=== PATIENT | male | born 1995 | race Caucasian/White ===

== ENCOUNTER 2018-11-14 23:53 | Emergency (ER) | payer OTHER ==
[~2018-11-14] VITALS: Ht 182.9 cm; Wt 82.6 kg
--- NOTE | 2018-11-15 00:17 | PHYS DOC ---
Adult General Chief Complaint Chief Complaint: SHORTNESS OF BREATH HPI HPI Patient is a 23 year old male presents to the ED complaining of cough 3 days ago. Patient states he started having mild shortness of breath today when he was at work. States he went home and took an Epson salt bath but then started to cough more. Associated symptoms include congestion and sore throat. States he has not taken any medications at home [id number]. Patient states he has used an inhaler before as a kid. Reports that he recently quit smoking 2 weeks ago. Denies chest pain, weakness, dizziness, lower leg swelling, recent travel, history of blood clots, abdominal pain, nausea/vomiting or fever. (GIAN TAYLOR) Review of Systems Review of Systems Constitutional: Denies fever or chills [] Eyes: Denies change in visual acuity, redness, or eye pain [] HENT: Complains of congestion and sore throat.[] Respiratory: Complains of cough and shortness of breath. Cardiovascular: No additional information not addressed in HPI [] GI: Denies abdominal pain, nausea, vomiting, bloody stools or diarrhea [] : Denies dysuria or hematuria [] Musculoskeletal: Denies back pain or joint pain [] Integument: Denies rash or skin lesions [] Neurologic: Denies headache, focal weakness or sensory changes [] All other systems were reviewed and found to be within normal limits, except as documented in this note. (GIAN TAYLOR) Current Medications Current Medications Current Medications Medications (Trade) Dose Ordered Sig/[place] Start Time Stop Time Status Last Admin Dose Admin Albuterol/ Ipratropium (Duoneb) 3 ml 1X ONCE 11/15/18 00:30 11/15/18 00:34 DC 11/15/18 00:49 3 ML Methylprednisolone Sodium Succinate (SOLU-Medrol 125MG VIAL) 125 mg 1X ONCE 11/15/18 00:30 11/15/18 00:34 DC 11/15/18 00:56 125 MG (BRIANA DAMON MD) Allergies Allergies Allergies Coded Allergies Type Severity Reaction Last Updated Verified No Known Drug Allergies 11/15/18 No (BRIANA DAMON MD) Physical Exam Physical Exam Constitutional: Well developed, well nourished, no acute distress, non-toxic appearance. [] HENT: Normocephalic, atraumatic, bilateral external ears normal, oropharynx moist, no oral exudates, nose normal. [] Eyes: PERRLA, EOMI, conjunctiva normal, no discharge. [] Neck: Normal range of motion, no tenderness, supple, no stridor. [] Cardiovascular:Heart rate regular rhythm, no murmur [] Lungs & Thorax: mild wheezing bilaterally. Dry cough. [] Abdomen: Bowel sounds normal, soft, no tenderness, no masses, no pulsatile masses. [] Skin: Warm, dry, no erythema, no rash. [] Back: No tenderness, no CVA tenderness. [] Extremities: No tenderness, no cyanosis, no clubbing, ROM intact, no edema. [] Neurologic: Alert and oriented X 3, normal motor function, normal sensory function, no focal deficits noted. [] Psychologic: Affect normal, judgement normal, mood normal. [] (GIAN TAYLRO) Current Patient Data Vital Signs Vital Signs Date Time Temp Pulse Resp B/P (MAP) Pulse Ox O2 Delivery O2 Flow Rate FiO2 11/15/18 00:59 98 16 136/76 (96) 98 Room Air 11/15/18 00:05 98.2 98.2 (BRIANA DAMON MD) EKG EKG [] (GIAN TAYLOR) Radiology/Procedures Radiology/Procedures [] (GIAN TAYLOR) Course & Med Decision Making Course & Med Decision Making Pertinent Labs and Imaging studies reviewed. (See chart for details) []Reviewed imaging findings with attending physician. No acute cardiopulmonary issues. Patient mildly wheezing on exam. States he is feeling much better after breathing treatment. Patient is not tachypneic or tachycardic. O2 sat after treatment is 98%. We'll treat outpatient with short course of prednisone, inhaler and cough suppressant. Discussed symptomatic treatment, hydration and [id number] medications. Discussed follow-up with PCP this week. Provided contact information/education. Discussed reasons to return to the ED. Patient understands and agrees with plan. Patient does not meet the PERC criteria for PE. Patient is less than 50 years old, heart rate less than 100, O2 saturation greater than 95%, no leg swelling, hemoptysis, recent surgery, prior DVT/PE or hormone use (GIAN TAYLOR) Course & Med Decision Making Staff Physician Addendum: I was working in the ER during the course of this patient's visit. I was available for consultation as needed, but I was not directly involved in the care of this patient. (BRIANA DAMON MD) Dragon Disclaimer Dragon Disclaimer This electronic medical record was generated, in whole or in part, using a voice recognition dictation system. (GIAN TAYLOR) Departure Departure Impression: Primary Impression: Acute bronchitis Disposition: HOME, SELF-CARE Condition: IMPROVED Referrals: BOZENA MOULTON MD Patient Instructions: Acute Bronchitis Scripts Albuterol Sulfate (PROAIR HFA INHALER) 8.5 Gm Hfa.aer.ad 1 PUFF INH PRN Q6HRS PRN for SHORTNESS OF BREATH, #1 INHALER 0 Refills Prov: GIAN TAYLOR 11/15/18 Benzonatate (TESSALON PERLE) 100 Mg Capsule 1 CAP PO TID for 5 Days, #15 CAP Prov: GIAN TAYLOR 11/15/18 Prednisone (PREDNISONE) 50 Mg Tablet 1 TAB PO DAILY for 5 Days, #5 TAB Prov: GIAN TAYLOR 11/15/18 GIAN TAYLOR Nov 15, 2018 00:17 BRIANA DAMON MD Nov 18, 2018 20:18
[2018-11-15] MEDS ORDERED: IPRATRPIUM/ALBUTEROL 0.5/2.5MG 3 ML NEBU. NEB ONE (00:30)
[2018-11-15] MEDS ORDERED: methylPREDNISolone SOD SUCC PF 125 MG/2 ML VIAL. IM ONE (00:30)
[2018-11-15 00:59] VITALS: BP 136/76
[2018-11-15] MEDS ORDERED: PRED50TA PO (01:01)
[2018-11-15] MEDS ORDERED: BENZ100C PO (01:01)
[2018-11-15] MEDS ORDERED: ALBU2.5V8 INH (01:01)
--- NOTE | 2018-11-15 07:47 | RAD ---
Single view of the chest. 11/15/2018 12:04 AM Indication: Shortness of breath today Comparison: None Findings: There is no focal consolidation. There is no pleural effusion or pneumothorax. The cardiomediastinal silhouette and pulmonary vasculature are within normal limits. No acute osseous abnormalities are seen. Impression: No evidence of acute cardiopulmonary process. Electronically signed by: Gabriel Keller MD (11/15/2018 7:44 AM) [id number]
== END 2018-11-15 01:22 | disposition home or self-care (01) ==
LOC: ER 11-15 00:24
DX: J20.9 Acute bronchitis, unspecified (principal)
CPT/HCPCS: 71045; 94640; 96372; 99283; J2930; J7620